=== PATIENT | male | born 1960 | race Caucasian/White ===

== ENCOUNTER 2020-02-28 14:29 | Emergency (ER) | payer OTHER ==
[~2020-02-28] VITALS: Ht 165.1 cm; Wt 129.3 kg
[2020-02-28 14:52] VITALS: BP 146/77; Ht 165.1 cm; Wt 129.3 kg
== END 2020-02-28 15:57 | disposition other institution (70) ==
LOC: ED 14:29
DX: Z02.89 Encounter for other administrative examinations (principal)
CPT/HCPCS: 82962